=== PATIENT | male | born 1995 | race Caucasian/White ===

== ENCOUNTER 2017-03-31 11:45 | Emergency (ER) | payer SELFPAY ==
[~2017-03-31 11:45] MED LIST: CALCTAB80 PO; LAMO100 PO; LISD50 PO; MONT10TA2 PO; NEXI40CA PO; SYMB160A INH; WAL-10TA2 PO
[2017-03-31 11:51] VITALS: BP 111/61; PULSE 60; RESP 18; TEMP 97.8; O2SAT 98
== END 2017-03-31 13:52 | disposition left against medical advice (07) ==
LOC: PHED 11:45 → PHEFT 13:52
DX: R68.89 Other general symptoms and signs (principal)
CPT/HCPCS: 99281